=== PATIENT | male | born 1970 | race Caucasian/White ===

== ENCOUNTER 2020-10-20 12:49 | Inpatient (IN) | payer OTHER ==
[~2020-10-20] VITALS: Ht 198.1 cm; Wt 124.7 kg
[2020-10-20 14:10] VITALS: Ht 198.1 cm; Wt 124.7 kg
[2020-10-20 16:03] LABS: BASOPHIL % 0.2 % (0.2-1.5); PLATELET COUNT 175 x10^3mcL (152-348); RED CELL DISTRIBUTION WIDTH 13.3 % (12.1-16.2)
[2020-10-20 16:20] LABS: CALCIUM 8.5 mg/dL (8.5-10.1); CARBON DIOXIDE 26.5 mmol/L (21-32); CREATININE SERUM 1.5 mg/dL (0.7-1.3); POTASSIUM SERUM 3.5 mmol/L (3.5-5.1)
[2020-10-20 16:29] LABS: ALBUMIN 3.8 g/dL (3.4-5.0); BILIRUBIN TOTAL 0.5 mg/dL (0.20-1.00); C REACTIVE PROTEIN 8.9 mg/dL (<=0.9); TOTAL PROTEIN, SERUM 7.7 g/dL (6.4-8.2)
[2020-10-20 17:51] LABS: UA SPECIFIC GRAVITY >=1.030 (1.005-1.035); microscopic required? YES; urine erythrocyte NEGATIVE (NEGATIVE)
[2020-10-20 18:44] VITALS: BP 123/72
[2020-10-20] MEDS ORDERED: WELLBUTRIN SR100 M1 (18:59)
[2020-10-20] MEDS ORDERED: EFFEXOR XR150 MG (19:47)
[2020-10-21] VITALS (7 sets, daily range): BP systolic 113–144; BP diastolic 71–86
[2020-10-21 08:34] LABS: PLATELET COUNT 175 x10^3mcL (130-400); RED CELL DISTRIBUTION WIDTH 12.3 % (11.5-14.5)
[2020-10-21 08:36] LABS: ALKALINE PHOSPHATASE 54 U/L (46-116); ALT/SGPT 32 U/L (16-63); AST/SGOT 42 U/L (15-37); BILIRUBIN TOTAL 0.44 mg/dL (0.20-1.00); CALCIUM 8.4 mg/dL (8.5-10.1); CARBON DIOXIDE 26.1 mmol/L (21-32); CHLORIDE SERUM 101 mmol/L (98-107); CHOLESTEROL 166 mg/dL (<200); CREATININE SERUM 0.9 mg/dL (0.7-1.3); GFR1 > 60 mL/min; GLUCOSE SERUM 95 mg/dL (74-106); LIPASE 236 IU/L (73-393); MAGNESIUM 2.3 mg/dL (1.8-2.4); PHOSPHOROUS 3.2 mg/dL (2.5-4.9); POTASSIUM SERUM 3.9 mmol/L (3.5-5.1); SODIUM SERUM 138 mmol/L (136-145); TRIGLYCERIDES 79 mg/dL (<150)
[2020-10-21 08:37] LABS: ALBUMIN 3.1 g/dL (3.4-5.0); CHOLESTEROL/HDL RATIO 5.7; HDL CHOLESTEROL 29 mg/dL (40-60)
[2020-10-21 11:46] LABS: BASOPHIL % 0 % (0-2)
[2020-10-22 06:35] VITALS: BP 115/72
[2020-10-22 07:46] LABS: ALKALINE PHOSPHATASE 53 U/L (46-116); ALT/SGPT 29 U/L (16-63); AST/SGOT 45 U/L (15-37); BILIRUBIN TOTAL 0.4 mg/dL (0.20-1.00); CALCIUM 8.1 mg/dL (8.5-10.1); CARBON DIOXIDE 27.5 mmol/L (21-32); CHLORIDE SERUM 100 mmol/L (98-107); GFR1 > 60 mL/min; GLUCOSE SERUM 89 mg/dL (74-106); LIPASE 296 IU/L (73-393); MAGNESIUM 2.3 mg/dL (1.8-2.4); PHOSPHOROUS 3.4 mg/dL (2.5-4.9); POTASSIUM SERUM 4.1 mmol/L (3.5-5.1); SODIUM SERUM 137 mmol/L (136-145); TOTAL PROTEIN, SERUM 6.4 g/dL (6.4-8.2)
[2020-10-22 07:52] VITALS: BP 125/80
[2020-10-22 08:02] LABS: BILIRUBIN DIRECT 0.16 mg/dL (0.0-0.2); BILIRUBIN TOTAL 0.4 mg/dL (0.20-1.00); TOTAL PROTEIN, SERUM 6.4 g/dL (6.4-8.2)
[2020-10-22 12:12] VITALS: BP 124/75
[2020-10-22 14:50] VITALS: BP 112/79
[2020-10-22 15:43] LABS: BASOPHIL % 0.6 % (0.2-1.5); PLATELET COUNT 196 x10^3mcL (152-348); RED CELL DISTRIBUTION WIDTH 13.2 % (12.1-16.2)
[2020-10-22 16:41] VITALS: BP 111/76
[2020-10-22 21:32] VITALS: BP 106/73
[2020-10-23 06:29] VITALS: BP 111/76
[2020-10-23 07:47] LABS: BASOPHIL % 0.1 % (0.2-1.5); PLATELET COUNT 222 x10^3mcL (152-348); RED CELL DISTRIBUTION WIDTH 13.2 % (12.1-16.2)
[2020-10-23 08:11] LABS: ALKALINE PHOSPHATASE 56 U/L (46-116); ALT/SGPT 33 U/L (16-63); AST/SGOT 30 U/L (15-37); BILIRUBIN TOTAL 0.49 mg/dL (0.20-1.00); CALCIUM 8.4 mg/dL (8.5-10.1); CHLORIDE SERUM 103 mmol/L (98-107); CREATININE SERUM 1.1 mg/dL (0.7-1.3); GFR1 > 60 mL/min; GLUCOSE SERUM 89 mg/dL (74-106); LIPASE 422 IU/L (73-393); MAGNESIUM 2.3 mg/dL (1.8-2.4); PHOSPHOROUS 3.7 mg/dL (2.5-4.9); POTASSIUM SERUM 4.3 mmol/L (3.5-5.1); SODIUM SERUM 142 mmol/L (136-145); TOTAL PROTEIN, SERUM 6.8 g/dL (6.4-8.2)
[2020-10-23 08:29] VITALS: BP 116/79
[2020-10-23 10:03] LABS: BILIRUBIN DIRECT 0.15 mg/dL (0.0-0.2); BILIRUBIN TOTAL 0.45 mg/dL (0.20-1.00); TOTAL PROTEIN, SERUM 6.8 g/dL (6.4-8.2)
[2020-10-23 10:05] LABS: ALBUMIN 3.1 g/dL (3.4-5.0)
[2020-10-23 12:28] VITALS: BP 116/74
[2020-10-23 16:15] LABS: CARBON DIOXIDE 27.2 mmol/L (21-32)
[2020-10-23 16:16] VITALS: BP 115/80
[2020-10-23] MEDS ORDERED: ELIQUIS2.5 MG PO (17:22)
[2020-10-23] MEDS ORDERED: CODEINE-GUAIFE120 ML PO (17:23)
[2020-10-23] MEDS ORDERED: DECADRON4 MG PO (17:23)
[2020-10-24 06:08] VITALS: BP 119/79
[2020-10-24 09:09] VITALS: BP 113/72
[2020-10-24 09:17] LABS: ALKALINE PHOSPHATASE 58 U/L (46-116); ALT/SGPT 26 U/L (16-63); AST/SGOT 28 U/L (15-37); BILIRUBIN TOTAL 0.3 mg/dL (0.20-1.00); CARBON DIOXIDE 27.7 mmol/L (21-32); CHLORIDE SERUM 102 mmol/L (98-107); GFR1 > 60 mL/min; GLUCOSE SERUM 89 mg/dL (74-106); LIPASE 386 IU/L (73-393); MAGNESIUM 2.3 mg/dL (1.8-2.4); PHOSPHOROUS 3.9 mg/dL (2.5-4.9); POTASSIUM SERUM 3.8 mmol/L (3.5-5.1); SODIUM SERUM 140 mmol/L (136-145); TOTAL PROTEIN, SERUM 6.4 g/dL (6.4-8.2)
[2020-10-24 09:30] LABS: PLATELET COUNT 245 x10^3mcL (152-348)
[2020-10-24 09:31] LABS: BASOPHIL % 0.1 % (0.2-1.5)
[2020-10-24 12:10] VITALS: BP 104/73
[2020-10-24 15:42] VITALS: BP 104/73
[2020-10-24 18:36] VITALS: BP 108/71
[2020-10-24 20:57] VITALS: BP 121/81
[2020-10-25 05:24] VITALS: BP 119/77
[2020-10-25 08:16] LABS: BASOPHIL % 0.2 % (0.2-1.5); PLATELET COUNT 280 x10^3mcL (152-348)
[2020-10-25 09:04] VITALS: BP 108/70
[2020-10-25 09:26] LABS: ALKALINE PHOSPHATASE 59 U/L (46-116); ALT/SGPT 34 U/L (16-63); AST/SGOT 37 U/L (15-37); BILIRUBIN TOTAL 0.3 mg/dL (0.20-1.00); CARBON DIOXIDE 29.7 mmol/L (21-32); CHLORIDE SERUM 103 mmol/L (98-107); GFR1 > 60 mL/min; GLUCOSE SERUM 82 mg/dL (74-106); LIPASE 298 IU/L (73-393); MAGNESIUM 2.1 mg/dL (1.8-2.4); PHOSPHOROUS 3.9 mg/dL (2.5-4.9); POTASSIUM SERUM 4.1 mmol/L (3.5-5.1); SODIUM SERUM 142 mmol/L (136-145); TOTAL PROTEIN, SERUM 6.3 g/dL (6.4-8.2)
[2020-10-25 10:57] LABS: CALCIUM 8.7 mg/dL (8.5-10.1)
[2020-10-25 12:15] VITALS: BP 109/68
[2020-10-25 17:30] VITALS: BP 108/72
[2020-10-25 22:38] VITALS: BP 116/81
== END 2020-10-26 00:55 | disposition home or self-care (01) | DRG 177 ==
LOC: ED 12:49 → DU 16:19
PROVIDERS: Emergency Medicine; Internal Medicine Infectious Disease; ADMIT Hospitalist; ATTEND Hospitalist
PROC: XW13325 Transfusion of Convalescent Plasma (Nonautologous) into Peripheral Vein, Percutaneous Approach, New Technology Group 5 (ICD-10-PCS; principal; 2020-10-22)
PROC: XW033E5 Introduction of Remdesivir Anti-infective into Peripheral Vein, Percutaneous Approach, New Technology Group 5 (ICD-10-PCS; 2020-10-22)
DX: U07.1 COVID-19 (principal); J96.01 Acute respiratory failure with hypoxia; J12.89 Other viral pneumonia; J45.901 Unspecified asthma with (acute) exacerbation; F32.9 Major depressive disorder, single episode, unspecified; E66.9 Obesity, unspecified; Z71.3 Dietary counseling and surveillance; Z68.31 Body mass index [BMI] 31.0-31.9, adult
CPT/HCPCS: 82962; 83880; 85378; 87804; C9113; G0378; J0456; J1100; J1650; J7030; J7050; U0003